=== PATIENT | female | born 1980 | race Two or more races ===

== ENCOUNTER 2017-01-01 09:14 | Emergency (ER) | payer MEDICAID ==
[~2017-01-01] VITALS: Ht 165.1 cm; Wt 81.4 kg
[~2017-01-01 09:14] MED LIST: PREN1TAB17 PO
[2017-01-01 09:16] VITALS: Ht 165.1 cm; Wt 81.4 kg
[2017-01-01] MEDS ORDERED: ONDANSETRON 4 MG INJ IV STA (09:38)
[2017-01-01] MEDS ORDERED: SOD CHLORIDE 0.9% 1,000 ML IV STA (09:38)
[2017-01-01] MEDS ORDERED: KETOROLAC 30 MG INJ IV STA (09:38)
[2017-01-01 09:56] LABS: ADD SCAN DIFF NO
[2017-01-01 09:58] LABS: URINE BLOOD (Dip) POC Negative (NEGATIVE)
[2017-01-01 09:58] LABS: BASOPHILS % 0.4 % (0.0-2.0); EOSINOPHILS % 0.2 % (0.0-7.0); HEMOGLOBIN 11.2 g/dl (12.0-16.0); MEAN CORPUSCULAR HEMOGLOBIN 23.5 pg (29.0-33.0); MEAN CORPUSCULAR HGB CONC 31.1 g/dl (32.0-37.0); MEAN CORPUSCULAR VOLUME 75.6 fl (82.0-101.0); MONOCYTE # 0.3 10^3/ul (0.3-0.9); MONOCYTES % 3.7 % (0.0-11.0); NEUTROPHIL # 6.8 10^3/ul (1.6-7.5); NEUTROPHILS % 83.5 % (39.0-77.0); PLATELET COUNT 268 10^3/UL (140-415); RED BLOOD COUNT 4.76 10^6/ul (4.20-5.40); WHITE BLOOD COUNT 8.2 10^3/ul (4.8-10.8)
[2017-01-01] MEDS ORDERED: MECLIZINE 12.5 MG TAB PO ONE (10:00)
[2017-01-01 10:19] LABS: ADD UMIC YES; UR AMORPHOUS CRYSTAL FEW /HPF (NONE SEEN); UR ASCORBIC ACID NEGATIVE (NEGATIVE); UR BACTERIA FEW /HPF (NONE SEEN); UR BILIRUBIN (Dip) NEGATIVE (NEGATIVE); UR BLOOD (Dip) NEGATIVE (NEGATIVE); UR BUDDING YEAST MANY /HPF (NONE SEEN); UR CLARITY CLOUDY (CLEAR); UR COLOR YELLOW (YELLOW); UR GLUCOSE (Dip) NEGATIVE (NEGATIVE); UR KETONES (Dip) NEGATIVE (NEGATIVE); UR LEUKOCYTE ESTERASE (Dip) NEGATIVE Leu/ul (NEGATIVE); UR NITRITE (Dip) NEGATIVE (NEGATIVE); UR RBC 1 /HPF (0-5); UR SPECIFIC GRAVITY (Dip) 1.014 (1.003-1.030); UR TOTAL PROTEIN (Dip) NEGATIVE (NEGATIVE); UR UROBILINOGEN (Dip) NEGATIVE (NEGATIVE); UR WBC CLUMPS FEW /HPF (NONE SEEN)
[2017-01-01 10:32] LABS: ALBUMIN/GLOBULIN RATIO 1.66; BILIRUBIN,INDIRECT 0.2 mg/dl (0-1.1); BILIRUBIN,TOTAL 0.2 mg/dl (0.2-1.3); CALCIUM 9.8 mg/dl (8.4-10.2); CREATININE 0.59 mg/dl (0.44-1.00); POTASSIUM 3.9 mmol/L (3.5-5.1)
[2017-01-01] MEDS ORDERED: ASPI1TAB30 PO (10:41)
[2017-01-01] MEDS ORDERED: ONDA4TAB14 PO (10:41)
[2017-01-01] MEDS ORDERED: MECL-77 PO (10:41)
--- NOTE | 2017-01-01 10:49 | ERD ---
ER Documentation Chief Complaint Date/Time DATE: 01/01/17 TIME: 10:46 Chief Complaint dizziness with nausea today HPI Patient is a 36-year-old female who states that yesterday she was having some abdominal pain but that is now resolved and now she has headache with dizziness and she threw up one time. She denies fever. She is tolerating oral intake. Denies any neck stiffness. Denies any urinary symptoms. Denies any dysuria hematuria or increased urinary frequency, ROS All systems reviewed and are negative except as per history of present illness. Medications Home Meds Active Scripts Meclizine Hcl* (Meclizine Hcl*) 25 Mg Tablet, 25 MG PO Q8H Y for DIZZINESS, #30 TAB Prov:ELAI CHU PA-C 01/01/17 Ondansetron (Ondansetron Odt) 4 Mg Tab.rapdis, 4 MG PO Q6H Y for NAUSEA AND/OR VOMITING, #20 TAB Prov:ELIA CHU PA-C 01/01/17 Aspirin/Acetaminophen/Caffeine (Excedrin Migraine Caplet) 1 Each Tablet, 1 EACH PO Q6, #30 TAB Prov:ELIA CHU PA-C 01/01/17 Reported Medications Vit-Iron Fumarate-FA ( Tablet) 1 Each Tablet, 1 EACH PO DAILY 04/28/13 Allergies Allergies: Coded Allergies: No Known Allergy (Unverified , 10/29/12) PMhx/Soc Medical and Surgical Hx: pt denies Medical Hx, pt denies Surgical Hx Hx Alcohol Use: No Hx Substance Use: No Hx Tobacco Use: No FmHx Family History: No diabetes Physical Exam Vitals Vital Signs Date Time Temp Pulse Resp B/P Pulse Ox O2 Delivery O2 Flow Rate FiO2 01/01/17 09:16 97.9 76 20 118/68 99 Physical Exam General: well developed, well nourished, alert, nontoxic, no distress Head: normocephalic, atraumatic Eyes: PERRL, normal conjunctiva Neck: Supple, nontender, no lymphadenopathy, no midline tenderness Respiratory: Clear to auscaultation bilaterally, speaks in full sentences, no use of accesory muscles or labored breathing, no rales, ronchi, or wheezing Cardiovascular: RRR, No murmurs GI: soft, non tender, non distended, negative murphys sign, negative mcburneys point tenderness, no cva tenderness bilaterally, no rebound or guarding Back: no midline tenderness, no step offs or bony abnormalities, sensation to light touch in tact Extremities: moving all extremities normally, normal gait, no edema Neuro: CN 2-12 intact, normal speech, gas operations analyst strength 5/5 bilaterally, rapid alternating movements wnl, romberg and pronator drift wnl Result Diagram: 01/01/17 0945 01/01/17 0945 Results 24 hrs Laboratory Tests Test 01/01/17 09:45 01/01/17 09:50 01/01/17 10:02 White Blood Count 8.210^3/ul Red Blood Count 4.7610^6/ul Hemoglobin 11.2g/dl Hematocrit 36.0% Mean Corpuscular Volume 75.6fl Mean Corpuscular Hemoglobin 23.5pg Mean Corpuscular Hemoglobin Concent 31.1g/dl Red Cell Distribution Width 17.0% Platelet Count 65399^3/UL Mean Platelet Volume 11.0fl Neutrophils % 83.5% Lymphocytes % 12.0% Monocytes % 3.7% Eosinophils % 0.2% Basophils % 0.4% Nucleated Red Blood Cells % 0.0/100WBC Neutrophils # 6.810^3/ul Lymphocytes # 1.010^3/ul Monocytes # 0.310^3/ul Eosinophils # 0.010^3/ul Basophils # 0.010^3/ul Nucleated Red Blood Cells # 0.010^3/ul Sodium Level 138mmol/L Potassium Level 3.9mmol/L Chloride Level 105mmol/L Carbon Dioxide Level 23mmol/L Anion Gap 14 Blood Urea Nitrogen 12mg/dl Creatinine 0.59mg/dl Glucose Level 98mg/dl Calcium Level 9.8mg/dl Total Bilirubin 0.2mg/dl Direct Bilirubin 0.00mg/dl Indirect Bilirubin 0.2mg/dl Aspartate Amino Transf (AST/SGOT) 21IU/L Alanine Aminotransferase (ALT/SGPT) 37IU/L Alkaline Phosphatase 79IU/L Total Protein 8.0g/dl Albumin 5.0g/dl Globulin 3.00g/dl Albumin/Globulin Ratio 1.66 Lipase 71U/L Urine Color YELLOW Urine Clarity CLOUDY Urine pH 9.0 Urine Specific [place] 1.014 Urine Ketones NEGATIVEmg/dL Urine Nitrite NEGATIVEmg/dL Urine Bilirubin NEGATIVEmg/dL Urine Urobilinogen NEGATIVEmg/dL Urine Leukocyte Esterase NEGATIVELeu/ul Urine Microscopic RBC 1/HPF Urine Microscopic WBC 4/HPF Urine Amorphous Crystals FEW/HPF Urine Bacteria FEW/HPF Urine Yeast (Budding) MANY/HPF Urine Hemoglobin NEGATIVEmg/dL Urine Glucose NEGATIVEmg/dL Urine Total Protein NEGATIVEmg/dl Bedside Urine pH (LAB) 8.5 Bedside Urine Protein (LAB) Trace Bedside Urine Glucose (UA) Negative Bedside Urine Ketones (LAB) Negative Bedside Urine Blood Negative Bedside Urine Nitrite (LAB) Negative Bedside Urine Leukocyte Esterase (L Negative Current Medications Medications (Trade) Dose Ordered Sig/Marianna Route PRN Reason Start Time Stop Time Status Last Admin Dose Admin Sodium Chloride (NS) 1,000 ml @ 1,000 mls/hr Q1H STAT IV 01/01/17 09:38 01/01/17 10:37 DC 01/01/17 09:59 Ondansetron HCl (Zofran Inj) 4 mg ONCE STAT IV 01/01/17 09:38 01/01/17 09:40 DC 01/01/17 09:59 Ketorolac Tromethamine (Toradol) 30 mg ONCE STAT IV 01/01/17 09:38 01/01/17 09:40 DC 01/01/17 09:59 Meclizine HCl (Antivert) 25 mg ONCE ONCE PO 01/01/17 10:00 01/01/17 10:01 DC 01/01/17 09:59 Procedures/MDM 36-year-old female presents for headache nausea and vomiting. She had abdominal pain yesterday which is already resolved. Examination including neurological is benign. Her labs are unremarkable however the urinalysis did show evidence of yeast and she will be treated here with Diflucan and was discharged with Excedrin, Zofran, and meclizine. Her vitals are all within normal limits. She had relief of her symptoms with IV fluids Toradol and Zofran. Recommended this patient follow up with her primary care doctor within 48 hours or return to the emergency room for any worsening of symptoms. However this time I do believe there is suitable for outpatient management. I answered all their questions and they agreed with the plan and were discharged home. Departure Diagnosis: Primary Impression: Headache Condition: Stable Patient Instructions: Self-Care for Headaches Additional Instructions: Call your primary care doctor TOMORROW for an appointment during the next 1-2 days.See the doctor sooner or return here if your condition worsens before your appointment time. ELIA CHU PA-C Jan 01, 2017 10:48
[2017-01-01] MEDS: FLUCONAZOLE 150 MG TAB PO ONE ×2 (10:57→11:01)
== END 2017-01-01 11:03 | disposition home or self-care (01) ==
LOC: FTE 09:14
DX: R51 Headache (principal); R11.0 Nausea
CPT/HCPCS: 36415; 80053; 81001; 83690; 85025; 96361; 96374; 96375; J1885; J2405; J7030; Z7502; Z7610; 81003

== ENCOUNTER 2017-04-19 10:46 | Emergency (ER) | payer MEDICAID, OTHER ==
[~2017-04-19] VITALS: Ht 165.1 cm; Wt 70.0 kg
[~2017-04-19 10:46] MED LIST changes: +ASPI1TAB31 PO; +MECL-77 PO; +ONDA4TAB14 PO
[2017-04-19 10:49] VITALS: Ht 165.1 cm; Wt 70.0 kg
[2017-04-19] MEDS ORDERED: KETOROLAC 30 MG INJ IV STA (11:59)
[2017-04-19] MEDS ORDERED: DIPHENHYDRAMINE 50 MG INJ IV ONE (12:00)
[2017-04-19] MEDS ORDERED: METOCLOPRAMIDE 10 MG INJ IV ONE (12:00)
[2017-04-19] MEDS ORDERED: SOD CHLORIDE 0.9% 1,000 ML IV ONE (12:00)
[2017-04-19] MEDS ORDERED: ONDA4TAB14 PO (14:02)
[2017-04-19] MEDS ORDERED: FIORICET PO (14:02)
--- NOTE | 2017-04-19 14:57 | ERD ---
ER Documentation Chief Complaint Date/Time DATE: 04/19/17 TIME: 14:52 Chief Complaint Complains of nausea and vomiting x 3 days HPI 36-year-old female patient with a past medical history of hypothyroidism presents to the ED complaining of a headache, nausea, vomiting that started earlier this morning at 7 AM. Reports that it was a gradual onset. States that this feels the same as when she was here in December 2016. Describes the pain as a pressure-like sensation and rates it a 5 out of 10. Reports that she has been taking Advil at home without relief of her when she takes Excedrin, it does help with her headache. Denies any dizziness, weakness, numbness or tingling, chest pain, shortness of breath, fever, chills, dysuria, urgency, frequency, hematuria. Reports that she takes levothyroxine. Denies any head trauma or seizures. ROS All systems reviewed and are negative except as per history of present illness. Medications Home Meds Active Scripts Ondansetron (Ondansetron Odt) 4 Mg Tab.rapdis, 4 MG PO Q6H Y for NAUSEA AND/OR VOMITING, #10 TAB Prov:RIGOBERTO CRISTOBAL PA-C 04/19/17 Acetamin/Butalbital/Caffeine* (Fioricet*) [id number] Tab, 1 TAB PO Q6H Y for PAIN, #30 TAB Prov:RIGOBERTO CRISTOBAL PA-C 04/19/17 Meclizine Hcl* (Meclizine Hcl*) 25 Mg Tablet, 25 MG PO Q8H Y for DIZZINESS, #30 TAB Prov:ELIA CHU PA-C 01/01/17 Ondansetron (Ondansetron Odt) 4 Mg Tab.rapdis, 4 MG PO Q6H Y for NAUSEA AND/OR VOMITING, #20 TAB Prov:ELIA CHU PA-C 01/01/17 Aspirin/Acetaminophen/Caffeine (Excedrin Migraine Caplet) 1 Each Tablet, 1 EACH PO Q6, #30 TAB Prov:ELIA CHU PA-C 01/01/17 Reported Medications Vit-Iron Fumarate-FA ( Tablet) 1 Each Tablet, 1 EACH PO DAILY 04/28/13 Allergies Allergies: Coded Allergies: No Known Allergy (Unverified , 04/19/17) PMhx/Soc Medical and Surgical Hx: pt denies Medical Hx, pt denies Surgical Hx Hx Alcohol Use: No Hx Substance Use: No Hx Tobacco Use: No Smoking Status: Never smoker Physical Exam Vitals Vital Signs Date Time Temp Pulse Resp B/P Pulse Ox O2 Delivery O2 Flow Rate FiO2 04/19/17 10:49 97.4 94 20 139/83 100 Physical Exam Const: [id number]-[id number]-[id number], well-nourished. In no acute distress. Head: Atraumatic, normocephalic Eyes: Normal Conjunctiva without injection. No purulent discharge. PERRLA. EOMI ENT: Normal external ear. Ear canal without erythema. Tympanic membrane pearly cannon without effusion or bulging. Nasal canal clear with normal turbinates. Moist oropharynx without tonsillar exudates. Non-erythematous pharynx. Uvula midline. No drooling. No trismus. Neck: No cervical midline tenderness. Full range of motion. No meningismus. No cervical lymphadenopathy. No JVD. Resp: Clear to auscultation bilaterally. No wheezing, rhonchi, rales, or crackles. No accessory muscle use. No retractions. Cardio: Regular rate and rhythm. No murmurs, rubs or gallops. Abd: Soft, non tender, non distended. Normal bowel sounds. No palpable masses. No rebound tenderness. No guarding. Negative McBurney's Point. Negative Elizalde's Sign. Skin: Normal skin turgor. No petechiae or rashes Back: No midline tenderness. No CVA tenderness. Ext: No cyanosis, or edema. Distal pulses intact bilaterally. Neur: Awake and alert. Normal gait. Normal coordination. Cranial Nerves II- VII intact. Normal finger to nose. Muscle strength 5/5. Sensation intact. Psych: Normal Mood and Affect Results 24 hrs Current Medications Medications (Trade) Dose Ordered Sig/Marianna Route PRN Reason Start Time Stop Time Status Last Admin Dose Admin Sodium Chloride (NS) 1,000 ml @ 1,000 mls/hr Q1H ONCE IV 04/19/17 12:00 04/19/17 12:59 DC 04/19/17 12:32 Metoclopramide HCl (Reglan) 10 mg ONCE ONCE IV 04/19/17 12:00 04/19/17 12:01 DC 04/19/17 12:32 Ketorolac Tromethamine (Toradol) 30 mg ONCE STAT IV 04/19/17 11:59 04/19/17 12:01 DC 04/19/17 12:32 Diphenhydramine HCl (Benadryl) 25 mg ONCE ONCE IV 04/19/17 12:00 04/19/17 12:01 DC 04/19/17 12:32 Procedures/MDM 36-year-old female patient with a past medical history for hypothyroidism presents to the ED complaining of headache, nausea, vomiting. Patient is afebrile and nontoxic-appearing. Patient has normal vital signs. Patient was treated here in the ED with Toradol, 1 L of normal saline, Benadryl, Reglan with improvement of her symptoms. Differentials include migraine headaches versus tension headaches. Urine negative. There is a low suspicion for intracranial bleed, subarachnoid hemorrhage, meningitis, TIA, stroke, subdural hematoma, epidural hematoma, cavernous sinus thrombosis, or other emergent conditions. Discharge medications: Fioricet Follow up with primary care physician in 1-2 days. Instructed patient to return to the ED sooner for any worsening symptoms. Patient's questions were answered. Patient understood and agreed with discharge plan. Patient discharged stable. Departure Diagnosis: Primary Impression: Headache Headache type: unspecified Headache chronicity pattern: unspecified pattern Intractability: not intractable Qualified Code: R51 - Nonintractable headache, unspecified chronicity pattern, unspecified headache type Additional Impression: Nausea and vomiting Vomiting type: unspecified Vomiting Intractability: unspecified Qualified Code: R11.2 - Nausea and vomiting, intractability of vomiting not specified, unspecified vomiting type Condition: Stable Patient Instructions: What Are Migraine and Tension Headaches?, Headache, Migraine (Classical) Referrals: [facility] YOU HAVE RECEIVED A MEDICAL SCREENING EXAM AND THE RESULTS INDICATE THAT YOU DO NOT HAVE A CONDITION THAT REQUIRES URGENT TREATMENT IN THE EMERGENCY DEPARTMENT. FURTHER EVALUATION AND TREATMENT OF YOUR CONDITION CAN WAIT UNTIL YOU ARE SEEN IN YOUR DOCTORS OFFICE WITHIN THE NEXT 1-2 DAYS. IT IS YOUR RESPONSIBILITY TO MAKE AN APPOINTMENT FOR FOLOW-UP CARE. IF YOU HAVE A PRIMARY DOCTOR --you should call your primary doctor and schedule an appointment IF YOU DO NOT HAVE A PRIMARY DOCTOR YOU CAN CALL OUR PHYSICIAN REFERRAL HOTLINE AT IF YOU CAN NOT AFFORD TO SEE A PHYSICIAN YOU CAN CHOSE FROM THE FOLLOWING [facility] [address] [facility] [address] [facility] [address] [facility] [address] [facility] [address] [facility] [facility] [address] [facility]. [facility] YOU HAVE RECEIVED A MEDICAL SCREENING EXAM AND THE RESULTS INDICATE THAT YOU DO NOT HAVE A CONDITION THAT REQUIRES URGENT TREATMENT IN THE EMERGENCY DEPARTMENT. FURTHER EVALUATION AND TREATMENT OF YOUR CONDITION CAN WAIT UNTIL YOU ARE SEEN IN YOUR DOCTORS OFFICE WITHIN THE NEXT 1-2 DAYS. IT IS YOUR RESPONSIBILITY TO MAKE AN APPOINTMENT FOR FOLOW-UP CARE. IF YOU HAVE A PRIMARY DOCTOR --you should call your primary doctor and schedule and appointment IF YOU DO NOT HAVE A PRIMARY DOCTOR YOU CAN CALL OUR PHYSICIAN REFERRAL HOTLINE AT . IF YOU CAN NOT AFFORD TO SEE A PHYSICIAN YOU CAN CHOSE FROM THE FOLLOWING [facility] INSTITUTIONS: [facility] [address] [place] [address] [facility] [address] [place] [address] [facility] [address] [place] [address] [facility] URGENT CARE/SPECIALTIES Additional Instructions: Call your primary care doctor TOMORROW for an appointment during the next 2-3 days.See the doctor sooner or return here if your condition worsens before your appointment time. RIGOBERTO CRISTOBAL PA-C Apr 19, 2017 14:57
== END 2017-04-19 14:22 | disposition home or self-care (01) ==
LOC: FTE 10:46
DX: R51 Headache (principal); Z79.82 Long term (current) use of aspirin
CPT/HCPCS: 96374; 96375; J1200; J1885; J2765; J7030; Z7502